=== PATIENT | female | born 1950 | race Caucasian/White ===

== ENCOUNTER 2019-10-23 05:39 | Inpatient (IN) | payer OTHER, MEDICAID ==
[~2019-10-23] VITALS: Ht 170.2 cm; Wt 83.5 kg
[2019-10-23 05:43] VITALS: BP 128/74
[2019-10-23] MEDS ORDERED: TRAMADOL 50 MG50 MG PO (05:48)
[2019-10-23] MEDS ORDERED: PROPRANOLOL 4040 M1 PO (05:48)
[2019-10-23] MEDS ORDERED: ZOFRAN4 MG PO (05:49)
[2019-10-23 06:09] LABS: ABSOLUTE LYMPHOCYTES 0.9 thou/uL (0.8-5.3); ABSOLUTE MONOCYTES 0.1 thou/uL (0.0-1.2); ABSOLUTE NEUTROPHILS 2.6 thou/uL (1.6-8.1); BASOPHILS 0.7 %; HEMATOCRIT 36.5 % (37.0-47.0); HEMOGLOBIN 12.1 gm/dL (12.0-15.0); LYMPHOCYTES 23.7 %; MCH 28.3 pg (26.0-34.0); MCHC 33.3 g/dL (28.0-37.0); MONOCYTES 2.8 %; MPV 10.1 fl. (7.2-11.1); NUCLEATED RBCS 0 /100WBC; PLATELET COUNT* 177 thou/uL (150-400); POLYS 71.8 %; WBC 3.6 thou/uL (4.0-11.0)
[2019-10-23 06:18] LABS: CALCIUM 8.5 mg/dL (8.5-10.1); CREATININE 0.8 mg/dL (0.6-1.3); POTASSIUM 3.5 mmol/L (3.5-5.1)
[2019-10-23 06:29] LABS: TOTAL BILIRUBIN 0.6 mg/dL (<0.1-1.0); TOTAL PROTEIN 6.5 g/dL (6.4-8.2)
[2019-10-23 06:30] LABS: INR 1.1; PROTIME 11.2 Seconds (9.20-11.50)
[2019-10-23 11:28] VITALS: BP 148/80
[2019-10-23] MEDS ORDERED: GABAPENTIN600 M1 PO (11:53)
[2019-10-23] MEDS ORDERED: NYSTATIN15 G3 TOP (11:54)
[2019-10-23 11:56] VITALS: BP 136/76
--- NOTE | 2019-10-23 17:43 | NUR ---
PT A&OX4 VSS. PT ADMITTED FROM ER WITH COMPRESSION FX R/T FALL AT HOME. PT HAS 2 IV, 20g TO RFA AND LAC. NORCO FOR PAIN MANAGEMENT. PT UP SBA TO BEDSIDE COMMODE. PT CONTINENT OF B/B. PT HX OF METASTATIC BREAST CANCER. PT CURRENTLY ON CHEMO. FAMILY IN ROOM ATY BEDSIDE. PT RESTS IN ROOM WITH CALL LIGHT IN REACH. WILL CONTINUE TO MONITOR.
[2019-10-24 08:45] VITALS: BP 116/68
[2019-10-24 09:26] LABS: ABSOLUTE LYMPHOCYTES 1.1 thou/uL (0.8-5.3); ABSOLUTE MONOCYTES 0.2 thou/uL (0.0-1.2); BASOPHILS 0.6 %; EOSINOPHILS 1.3 %; HEMATOCRIT 33.5 % (37.0-47.0); LYMPHOCYTES 32.9 %; MCHC 32.7 g/dL (28.0-37.0); MCV 85.6 fL (80.0-100.0); MONOCYTES 5.1 %; MPV 10.5 fl. (7.2-11.1); NUCLEATED RBCS 0 /100WBC; PLATELET COUNT* 159 thou/uL (150-400); POLYS 60.1 %; RBC 3.92 mil/uL (4.20-5.00); RDW-CV 18.2 % (10.5-14.5); WBC 3.4 thou/uL (4.0-11.0)
[2019-10-24 09:36] LABS: CALCIUM 8.3 mg/dL (8.5-10.1); CREATININE 0.7 mg/dL (0.6-1.3); POTASSIUM 3.7 mmol/L (3.5-5.1)
--- NOTE | 2019-10-24 17:16 | NUR ---
MRI ORDERED FOR THIS WEEKEND FOR POSSIBLE IR INTERVENTION ON SATURDAY. SPOKE WITH NURSING BLACKSMITH HAMMER OPERATOR WHO STATED DR KARIMI WOULD BE HERE SATURDAY AND WOULD NOT BE ABLE TO PERFORM ANY INTERVENTION AND DR GALARZA WAS NOT AVAILABLE UNTIL SATURDAY TO PERFORM ANY POTENTIAL INTERVENTION SO THE MRI WAS NOT EMERGENT FOR THE WEEKEND. DR MCQUEEN NOTIFIED.
--- NOTE | 2019-10-24 17:20 | NUR ---
PATIENT RESTING IN BED. PATIENT IS UP WITH STANDBY ASSIST. DAUGHTER AT BEDSIDE. PATIENT HAS HAD COMPLAINTS OF BACK PAIN 05/05, TREATED ADEQUATELY WITH HYDROCODONE AND FENTANYL FOR BREAKTHROUGH PAIN. PATIENT HAS GOOD APPETITE. PATIENT DENIES ANY NEEDS AT THIS TIME. CALL LIGHT WITHIN REACH.
[2019-10-25] VITALS: BP 108/49
[2019-10-25 03:58] LABS: ABSOLUTE LYMPHOCYTES 1.3 thou/uL (0.8-5.3); ABSOLUTE MONOCYTES 0.3 thou/uL (0.0-1.2); ABSOLUTE NEUTROPHILS 2.3 thou/uL (1.6-8.1); BASOPHILS 0.7 %; EOSINOPHILS 1.2 %; HEMATOCRIT 33.9 % (37.0-47.0); HEMOGLOBIN 11.1 gm/dL (12.0-15.0); LYMPHOCYTES 32.7 %; MCH 27.9 pg (26.0-34.0); MCHC 32.8 g/dL (28.0-37.0); MCV 85.3 fL (80.0-100.0); MONOCYTES 7.6 %; MPV 10.3 fl. (7.2-11.1); NUCLEATED RBCS 0 /100WBC; PLATELET COUNT* 169 thou/uL (150-400); POLYS 57.8 %; RBC 3.97 mil/uL (4.20-5.00)
[2019-10-25 04:15] LABS: ALBUMIN 2.6 g/dL (3.4-5.0); CALCIUM 8.4 mg/dL (8.5-10.1); CREATININE 0.9 mg/dL (0.6-1.3); POTASSIUM 3.7 mmol/L (3.5-5.1); TOTAL BILIRUBIN 0.2 mg/dL (<0.1-1.0); TOTAL PROTEIN 5.7 g/dL (6.4-8.2)
--- NOTE | 2019-10-25 05:18 | NUR ---
PATIENT AND DAUGHTER VOICED CONCERNS ABOUT DINNER NOT ARRIVING AFTER PLACING ORDER. GROCERY STOCK CLERK NOTIFIED AND HE SAID HE WOULD ATTEMPT TO REACH STAFF IN DIETARY BUT WAS UNSUCCESSFUL. TURKEY SANDWICHES/BOXED LUNCH AND DRINKS PROVIDED FOR PT AND DAUGHTER AND APOLOGIES MADE. PT HAD COMPLAINT NIGHT BEFORE ABOUT DEBIT CARD BEING GIVEN TO DIETARY STAFF TO PAY FOR DAUGHTER'S DINNER AND THE CARD WAS NEVER BROUGHT BACK. GROCERY STOCK CLERK NOTIFIED. PT SAID CARD WAS RETURNED FIRST THING IN THE AM. PT ALERT/ORIENTED X4 AND UP TO BSC OR BATHROOM WITH ASSIST OF DAUGHTER OR STAFF. PT REQUESTED PAIN MEDICATION AND RECEIVED HYDROCODONE 2 TABS AND SAID THIS WORKED BETTER FOR PAIN THAN THE FENTANYL. FREQUENTLY USED ITEMS AND CALL LIGHT WITHIN REACH. SIDERAILS UPX2. WILL CONTINUE TO MONITOR.
[2019-10-25 08:25] VITALS: BP 133/54
--- NOTE | 2019-10-25 17:10 | NUR ---
PATIENT RESTING IN BED. PATIEN TIS UP WITH STANDBY ASSIST. PATIENT HAS CONTINUED COMPAINTS OF BACK PAIN, TREATED PARTIALLY WITH MEDICATION. PATIENT HAS GOOD APPETITE. DAUGHTER AT BEDSIDE. PATIENT DENIES ANY NEEDS AT THIS TIME. CALL LIGHT WITHIN REACH.
[2019-10-25 23:52] VITALS: BP 150/64
--- NOTE | 2019-10-26 04:51 | NUR ---
PATIENT WITH SEVERE PAIN AND CRYING AT BEGINNING OF SHIFT. PT GIVEN FENTANYL X2 AND HYDROCODONE X2 DURING THIS SHIFT AND HAS BEEN ABLE TO SLEEP AT THIS TIME. PT UP WITH STANDBY TO BSC. DAUGHTER IS AT BEDSIDE. PT DENIES ANY NAUSEA AT THIS TIME. FREQUENTLY USED ITEMS AND CALL LIGHT WITHIN REACH. SIDERAILS UPX2. WILL CONTINUE TO MONITOR.
[2019-10-26 06:12] LABS: ABSOLUTE LYMPHOCYTES 1.3 thou/uL (0.8-5.3); ABSOLUTE MONOCYTES 0.3 thou/uL (0.0-1.2); ABSOLUTE NEUTROPHILS 1.9 thou/uL (1.6-8.1); BASOPHILS 0.5 %; EOSINOPHILS 1.3 %; HEMATOCRIT 37.5 % (37.0-47.0); HEMOGLOBIN 12.1 gm/dL (12.0-15.0); LYMPHOCYTES 37.9 %; MCH 27.8 pg (26.0-34.0); MCHC 32.2 g/dL (28.0-37.0); MCV 86.4 fL (80.0-100.0); MONOCYTES 7.2 %; MPV 9.9 fl. (7.2-11.1); NUCLEATED RBCS 0 /100WBC; PLATELET COUNT* 204 thou/uL (150-400); POLYS 53.1 %; RBC 4.34 mil/uL (4.20-5.00); RDW-CV 18.6 % (10.5-14.5); WBC 3.5 thou/uL (4.0-11.0)
[2019-10-26 06:27] LABS: CALCIUM 8.6 mg/dL (8.5-10.1); CREATININE 0.8 mg/dL (0.6-1.3); POTASSIUM 3.9 mmol/L (3.5-5.1)
[2019-10-26 07:40] VITALS: BP 144/65
[2019-10-26 16:00] VITALS: BP 102/47; BP 113/39
--- NOTE | 2019-10-26 16:30 | NUR ---
SW met with pt to complete initial assessment, introduce self, and SW role. Pt lives at home with dtr who is 16 yo. Pt has son in , a son in [place], and a son in [place]. Pt interested in Cares program, services, in home services at dc. SW to continue to follow to assist with safe dc planning.
--- NOTE | 2019-10-26 17:22 | NUR ---
PATIENT DOWN FOR MRI THIS AM OF THORACIC/LUMBAR SPINE, DR. MCQUEEN NOTIFIED OF CONFIRMED FRACTURE AND PATIENT TO HAVE OSTEOPLASTY TOMORROW. NPO AFTER MIDNIGHT. IV'S SL. PATIENT REQUESTING FENTANYL AND HYDROCODONE MULTIPLE TIMES THIS SHIFT FOR BACK PAIN. PATIENT UP TO BSC WITH ASSISTANCE. TOLERATING REG DIET.
[2019-10-26 20:30] VITALS: BP 104/50
[2019-10-27 05:42] LABS: ABSOLUTE EOSINOPHILS 0.1 thou/uL (0.0-0.7); ABSOLUTE MONOCYTES 0.3 thou/uL (0.0-1.2); ABSOLUTE NEUTROPHILS 1.5 thou/uL (1.6-8.1); BASOPHILS 0.5 %; EOSINOPHILS 2.3 %; HEMATOCRIT 36.4 % (37.0-47.0); HEMOGLOBIN 11.7 gm/dL (12.0-15.0); LYMPHOCYTES 35.7 %; MCH 27.9 pg (26.0-34.0); MCHC 32.1 g/dL (28.0-37.0); MCV 86.8 fL (80.0-100.0); MONOCYTES 9.8 %; MPV 9.8 fl. (7.2-11.1); NUCLEATED RBCS 0 /100WBC; PLATELET COUNT* 164 thou/uL (150-400); POLYS 51.7 %; RBC 4.19 mil/uL (4.20-5.00); RDW-CV 18.1 % (10.5-14.5); WBC 2.9 thou/uL (4.0-11.0)
[2019-10-27 06:02] LABS: CALCIUM 8.7 mg/dL (8.5-10.1); CREATININE 0.7 mg/dL (0.6-1.3)
--- NOTE | 2019-10-27 06:44 | NUR ---
PATIENT SLEPT MOST OF THE NIGHT. IV REMAIN SALINE LOCKED. PATIENT WAS GIVEN PAIN MEDICINE NEEDED. PATIENT HAS BEEN NPO SINCE MIDNIGHT FOR PROCEDURE TODAY. WILL CONTINUE TO MONITOR.
[2019-10-27 08:06] VITALS: BP 152/66
[2019-10-27 11:03] VITALS: BP 136/73
[2019-10-27 15:45] VITALS: BP 118/67
--- NOTE | 2019-10-27 17:06 | NUR ---
PATIENT WENT TO INTERVENTION RADIOLOGY THIS MORNING FOR KYPHOPLASTY AT L1 . RETURNED TO FLOOR AT 1045 WITH SMALL TEGADERM AND GAUZE DRESSING. PATIENT CONTINUES TO C/O PAIN AT AN 8-10 ALTHOUGH SHE IS FOUND SLEEPING SOUNDLY AFTER ASKING FOR MORE PAIN MEDS. HAS REC'D FENTANYL 25MCG IVP X2, AND HYDROCODONE 5/325 2 TABS PO X2 SINCE RETURNING TO UNIT. PT/OT ORDERED AND SPOKE WITH PATIENT AT GREAT LENGTH ABOUT GETTING UP AND MOVING AROUND TO INCREASE ACTIVITY DUE TO HER POSSIBLY GOING HOME TOMORROW, SHE REFUSED. DAUGHTER HAS REMAINED AT THE BEDSIDE THROUGHOUT THE DAY.
[2019-10-27 20:00] VITALS: BP 135/73
--- NOTE | 2019-10-28 05:11 | NUR ---
PT ALERT AND ORIENTED. VSS ON RA. MEDS GIVEN PER EMAR. PAIN GOT BOTH IV AN PO PAIN MEDS CONSISTENTLY THROUGH SHIFT. PAIN RATELY ALWAYS 10/10. PT SAYS PAIN MEDS HELP A LITTLE. PT SLEPT OFF AND ON THIS SHIFT. PT TO BSC. DTR AT BEDSIDE. CALL LIGHT WITHIN REACH. HOURLY ROUNDINGS MADE. WILL CONTINUE TO MONITOR.
[2019-10-28 07:28] VITALS: BP 131/65
[2019-10-28 16:00] VITALS: BP 148/65
--- NOTE | 2019-10-28 16:48 | NUR ---
Therapists with OT and PT department discussed with SW and with pt nurse that pt was not safe to dc home alone at this point and would recommend rehab prior to pt dc home. Pt nurse discussed with Dr Duffy who approved for inpt rehab consult. SW to continue to follow to assist with safe dc planning.
--- NOTE | 2019-10-28 17:42 | NUR ---
PATIENT HAD TO BE ENCOURAGED TO GET OUT OF BED AND SHOWER TODAY, ASSISTED BY STUDENT. PATIENT IV DC'D SITE WAS PINK. SPOKE WITH DR. MCQUEEN AND NOTIFIED THAT PT/OT FELT PATIENT UNSAFE TO RETURN TO HOME, REHAB CONS PLACED. IV FENTANYL DC'D PER DR. MCQUEEN'S ORDERS, FENTANYL PATCHED ORDERED AND PLACED TO LEFT SHOULDER. BED ALARM IN PLACE FOR PATIENT SAFETY. UP TO BATHROOM WITH SBA.
[2019-10-28 20:36] VITALS: BP 116/59
--- NOTE | 2019-10-29 05:21 | NUR ---
PT ALERT AND ORIENTED. VSS ON RA. MEDS GIVEN PER EMAR. PT REFUSED BP MED. PAIN MEDS GIVEN THROUGH SHIFT. PT SAYS PAINS SEEMS TO BE GETTING BETTER. PT UP TO BATHROOM STB. WALKER IN THE ROOM. FALL PRECAUTION IN PLACE. PT RE-EDUCATED ON FALLS. NYSTATIN TO RIGHT BREAST FOLDS. CALL LIGHT WITHIN REACH. HOURLY ROUNDINGS MADE. WILL CONTINUE TO MONITOR.
[2019-10-29 08:10] VITALS: BP 138/68
--- NOTE | 2019-10-29 13:08 | PATH ---
[address] [address] PATHOLOGY RPT PROCEDURE Name: GABRIEL STEELE Room: [facility] IN M.R.#: [id number] Admission: 10/23/19 Date of : 50 Discharge: Report #: [id number] Path Case #: [id number] [facility] Accession Number: [id number] . 01 Material submitted: . vertebral column - L1 VERTEBRAL BONE BIOPSY . 01 Clinical history: . None provided. . 02 Diagnosis: L1 bone biopsy fracture site: - Benign and viable cancellous bone including hematopoietic elements with evidence of fracture including stromal edema and granulation tissue. See comment. ([facility] 10/29/2019) [facility] 10/29/2019 0947 Local . 02 Comment: A properly controlled keratin Javier immunohistochemical stain, performed on A1, is negative. ([facility]BY:[facility] 10/29/2019) . . 02 Electronically signed: . James Rebolledo MD, Pathologist NPI- [id number] . 01 Gross description: . Received in formalin labeled "Gabriel Steele". The container is not labeled with the specimen site. Per the requisition, the specimen site is "L1 bone BX FX site". The specimen is a 2.0 x 2.0 x 0.2 cm aggregate of red-brown clotted blood material or soft tissue. A focal area of possible bone measuring 0.2 cm in greatest dimension is identified. The specimen is submitted entirely without decalcification in cassettes A1-A2. ([facility]; 10/27/2019) [facility] 10/27/2019 1931 Local . 02 Pathologist provided ICD-10: S32.019A . 02 CPT . 010314, E22875 Specimen Comment: A courtesy copy of this report has been sent to [phone] Specimen Comment: [id number] Specimen Comment: Report sent to / DR MCQUEEN Performed at: 01 [place] [address] PATHOLOGY RPT PROCEDURE Name: GABRIEL STEELE Room: [address] IN .#: [id number] Admission: 10/23/19 Date of : 50 Discharge: Report #: [id number] Path Case #: [id number] [address], [place], [place] [id number] MD Cisco Sanchez MD Phone: [phone] Performed at: [address] [facility] [address] [place] [id number] MD James Rebolledo MD Phone: [phone]
[2019-10-29 16:27] VITALS: BP 148/74
--- NOTE | 2019-10-29 17:39 | NUR ---
PATIENT RESTING IN BED. PATIENT IS UP WITH [facility] ASSIST. PATIENT HAS CONTINUED COMPLAINTS OF BACK PAIN, FENTANYL PATCH INCREASED AND HYDROCODONE AVAILABLE PRN. PATIENT HAS GOOD APPETITE. PATIENT DENIES ANY NEEDS AT THIS TIME. CALL LIGHT WITHIN REACH.
[2019-10-29 20:26] VITALS: BP 113/65
--- NOTE | 2019-10-30 05:14 | NUR ---
PATIENT SLEPT WELL DURING THIS SHIFT. PT UP TO BATHROOM WITH STANDBY ASSIST. PT REQUESTED PAIN MEDICATION APPROX Q4H FOR BACK PAIN. PT SAID TWO HYDROCODONE HELPS WITH PAIN. PT ALSO HAS A FENTANYL 75MCG PATCH. PT DENIES NAUSEA DURING THIS SHIFT. FREQUENTLY USED ITEMS AND CALL LIGHT WITHIN REACH. SIDERAILS UPX2 AND BED ALARM ON. WILL CONTINUE TO MONITOR.
[2019-10-30 07:10] VITALS: BP 121/74
--- NOTE | 2019-10-30 12:07 | NUR ---
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 Has breast cancer with METS. Wt: 184#. Eating regular diet well. H/o DM. Labs: albumin 2.6, prealbumin 13 - severely depleted. RD ordered Beneprotein BID for added protein intake. No other nutrition interventions needed at this time. Mild risk.
--- NOTE | 2019-10-30 14:58 | EKG ---
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: : 1950 Requested By: Chandni Gayle Order Number: [id number] MD: Elias Solorio Measurements Intervals [place] Rate: 102 P: 45 IN: 160 QRS: 63 QRSD: 96 T: 43 QT: 349 QTc: 455 Interpretive Statements Sinus tachycardia No previous ECG available for comparison Electronically Signed On 10-23-2019 9:44:18 CASH APPLICATIONS ANALYST by Elias Solorio [email or web address] <ELECTRONICALLY SIGNED> By: Elias Solorio MD, [facility] 10/23/19 0944 0544 Elias Solorio MD, [facility] /EPI
[2019-10-30 15:40] VITALS: BP 139/72
--- NOTE | 2019-10-30 17:18 | NUR ---
DC pending pt medical stability and dc placement inpt rehab or SNF or Home with dtr and HH and in home services. OT spoke with SW about in home/private duty and SW provided referral/resource list to provide to pt. [facility] application also ready to provide to [facility] at dc and HH can be arranged through [facility]. Pt nauseous today according to nursing but also making some improvements in mobility and ADLs according to therapy. SW/CM to continue to follow to assist with safe dc planning if placement needed, still pending acceptance and insurance auth.
[2019-10-30 21:40] VITALS: BP 131/65
--- NOTE | 2019-10-31 03:33 | NUR ---
PATIENT SAID SHE HAD A BETTER NIGHT THAN PRIOR NIGHTS AND SLEPT WELL. PT REQUESTED PAIN MEDICATION LESS FREQUENT. PT WOULD GET TWO HYDROCODONE FOR BACK PAIN. PT UP WITH STANDBY TO BATHROOM. PT HAS NO IV ACCESS. DENIES NAUSEA/VOMITING ON THIS SHIFT. DAUGHTER IS AT BEDSIDE. FREQUENTLY USED ITEMS AND CALL LIGHT WITHIN REACH. SIDERAILS UPX2 AND BED ALARM ON. WILL CONTINUE TO MONITOR.
[2019-10-31 08:08] VITALS: BP 136/69
[2019-10-31 16:31] VITALS: BP 147/71
[2019-10-31 20:00] VITALS: BP 134/59
--- NOTE | 2019-10-31 20:09 | NUR ---
PATIENT AWAKE IN BED. PATIENT AMBULATED WITH ASSISTANCE THROUGHOUT SHIFT TO BATHROOM. PATIENT DECLINED WALKER AND GAIT BELT THIS AFTERNOON. FALL PREVENTION RE-EDUCATION PROVIDED. FAMILY AT BEDSIDE.
--- NOTE | 2019-11-01 05:30 | NUR ---
PT SHOWING SIGNS OF CONFUSION AND INCREASED WEAKNESS, PT ASSISTED TO BSC PT VERY WEAK. BSC PLACED NEXT TO BED BED ALARM ON FOR SAFETY. PT C/O PAIN AND NAUSEA PO MEDICATION GIVEN PRESCRIBED. RESTED WELL THROUGHOUT HOURLY ROUNDS.
[2019-11-01 07:50] VITALS: BP 111/70
[2019-11-01 16:00] VITALS: BP 155/77
[2019-11-01 19:05] VITALS: BP 121/76
--- NOTE | 2019-11-01 19:46 | NUR ---
PATIENT AWAKE IN BED WITH DAUGHTER AT BEDSIDE. PATIENT EXPERIENCED INCREASED CONFUSION AND WEAKNESS REQUIRING ASSISTANCE X2, GAIT BELT, AND WALKER FROM COMMODE TO BED. ALL SAFETY MEASURES MAINTAINED. DR. COTTON NOTIFIED. NEW ORDERS RECEIVED AND VERIFIED WITH READ BACK. PATIENT DENIES FURTHER NEEDS AT THIS TIME.
[2019-11-01 20:00] VITALS: BP 120/61
[2019-11-01 20:12] LABS: ABSOLUTE LYMPHOCYTES 0.7 thou/uL (0.8-5.3); ABSOLUTE MONOCYTES 0.5 thou/uL (0.0-1.2); ABSOLUTE NEUTROPHILS 1.1 thou/uL (1.6-8.1); BASOPHILS 1.2 %; HEMATOCRIT 36.6 % (37.0-47.0); HEMOGLOBIN 11.8 gm/dL (12.0-15.0); LYMPHOCYTES 31.4 %; MCH 27.8 pg (26.0-34.0); MCHC 32.3 g/dL (28.0-37.0); MCV 86.1 fL (80.0-100.0); MONOCYTES 19.4 %; MPV 9.5 fl. (7.2-11.1); NUCLEATED RBCS 0 /100WBC; PLATELET COUNT* 200 thou/uL (150-400); RBC 4.26 mil/uL (4.20-5.00); RDW-CV 18.3 % (10.5-14.5); WBC 2.4 thou/uL (4.0-11.0)
[2019-11-01 20:16] LABS: BE 0.9 mmol/L (-2 to +3); PCO2 VENOUS 55.1 mmHg (41.0-51.0); PO2 VENOUS 63.5 mmHg (35.0-45.0)
[2019-11-01 20:24] LABS: CALCIUM 8.6 mg/dL (8.5-10.1); CREATININE 0.8 mg/dL (0.6-1.3); POTASSIUM 3.8 mmol/L (3.5-5.1)
[2019-11-01 20:28] LABS: ALBUMIN 2.7 g/dL (3.4-5.0); MAGNESIUM 1.2 mg/dL (1.8-2.4); TOTAL BILIRUBIN 0.3 mg/dL (<0.1-1.0); TOTAL PROTEIN 6.3 g/dL (6.4-8.2)
[2019-11-02] VITALS: BP 157/79
[2019-11-02 08:00] VITALS: BP 138/78
--- NOTE | 2019-11-02 15:24 | NUR ---
FAXED REFERRAL TO [facility]. NOTIFIED MICHELLE/DUNIA THAT PATIENT IS READY FOR DISCHARGE AND TO BEGIN INSURANCE AUTHORIZATION. WILL FOLLOW UP WITH CONFIRMATION THEY RECEIVED REFERRAL AND BED AVAILABILITY. [phone]; [phone]
[2019-11-02 16:00] VITALS: BP 136/64
[2019-11-02 20:00] VITALS: BP 126/65
--- NOTE | 2019-11-03 06:51 | NUR ---
ASSUMED CARES AT 1920. ALERT AND ORIENTED. PLEASANT. O2 1L NC. PAIN MEDS GIVEN FOR BACK PAIN. NEEDS MIN ASSIST UP TO BSC. SLEPT OFF AND ON.
[2019-11-03 07:54] VITALS: BP 132/60
--- NOTE | 2019-11-03 13:54 | NUR ---
SPOKE WITH MICHELLE/LYNETTE, THEY HAVE DECLINED PT D/T RECEIVING CHEMO. MET WITH PT TO DISCUSS. SHE HAD BEEN GETTING CHEMO IN [facility] BUT HAS AN APPT THURS WITH DR HENNESSY IN [place], 1ST VISIT, NO CHEMO SCHEDULED PER PT. DTR IN ROOM AND CONFIRMED. DISCUSSED OTHER SNF OPTIONS WITH PT, SHE IS OPEN TO EITHER [facility] OR [facility]. CALLED AND FAXED TO [facility]. DE/NABEEL STATED THEY DO NOT HAVE BEDS. AWAIT [facility] DECISION. ALSO DISCUSSED DIFFERENCE BETWEEN PALLATIVE CARE AND HOSPICE PER REQUEST. PT STATED SHE UNDERSTOOD. WILL CONSIDER
--- NOTE | 2019-11-03 15:51 | NUR ---
ASSUMED CARE OF PT AROUND 0730 THIS AM. REFER TO ASSESSMENT. PT GIVEN PRN HYDROCODONE FOR PAIN THIS SHIFT FOR PAIN MANAGEMENT. CASE MANAGEMENT ATTEMPTING TO FIND SNF PLACEMENT BUT D/T PT REMAINING ON CHEMOTHERAPY, NO PLACEMENT FOUND AT THIS TIME. PT GIVEN INFORMATION FOR PALLIATIVE CARE PER PHYSICIAN REQUEST. NO OTHER CONCERNS AT THIS TIME. CLWR. WCTM.
[2019-11-03 17:31] VITALS: BP 131/70
[2019-11-03 21:18] VITALS: BP 153/76
--- NOTE | 2019-11-04 04:49 | NUR ---
PATIENT ALERT/ORIENTED X3, FORGETFUL AND CONFUSED. PT IS TOO WEAK TO GET TO BSC AND ATTEMPTS TO USE BEDPAN. PT UNABLE TO USE BEDPAN AND IS INCONTINENT OF URINE. PT CHANGED FREQUENTLY. PT IS SALINE LOCKED IN LT FOREARM; PATENT. PT REQUESTED PAIN AND NAUSEA MEDICATION X1. FREQUENTLY USED ITEMS AND CALL LIGHT WITHIN REACH. SIDERAILS UPX3 AND BED ALARM ON. DAUGHTER IS AT BEDSIDE. WILL CONTINUE TO MONITOR.
[2019-11-04 05:29] LABS: HEMOGLOBIN 11.5 gm/dL (12.0-15.0); MCH 28.2 pg (26.0-34.0); MCHC 32.9 g/dL (28.0-37.0); MCV 85.7 fL (80.0-100.0); MPV 9.3 fl. (7.2-11.1); RBC 4.08 mil/uL (4.20-5.00); RDW-CV 18.9 % (10.5-14.5); WBC 3.7 thou/uL (4.0-11.0)
[2019-11-04 06:03] LABS: ALBUMIN 2.6 g/dL (3.4-5.0); CALCIUM 8.2 mg/dL (8.5-10.1); CREATININE 0.8 mg/dL (0.6-1.3); MAGNESIUM 1.4 mg/dL (1.8-2.4); PHOSPHORUS* 4.1 mg/dL (2.5-4.9)
[2019-11-04 07:55] VITALS: BP 156/66
--- NOTE | 2019-11-04 08:54 | NUR ---
CONFIRMED WITH AUSTYN/INTAKE AT [facility] THAT THEY HAVE ACCEPTED PATIENT AND HAVE INSURANCE AUTHORIZATION. NOTIFIED HVAC MECHANICAL ENGINEER. ARRANGEMENTS TO BE MADE, DCP TO FOLLOW. [phone]; [phone]
[2019-11-04 11:37] LABS: URINE BILIRUBIN NEGATIVE (Negative); URINE BLOOD TRACE (Negative); URINE CLARITY CLEAR; URINE COLOR YELLOW; URINE GLUCOSE-RANDOM NEGATIVE (Negative); URINE KETONES 2+ (Negative); URINE LEUKOCYTES-REFLEX 1+ (Negative); URINE NITRITE-REFLEX POSITIVE (Negative); URINE PROTEIN NEGATIVE (Negative); URINE UROBILINOGEN 0.2 E.U./dl (0.2-1.0)
[2019-11-04 12:37] LABS: BACTERIA-REFLEX >30 Many /HPF (None Seen); SQUAMOUS 0-3 Few /LPF (0-3); URINE WBC-REFLEX 6-15 Few /HPF (0-5)
[2019-11-04 12:38] LABS: CASTS None Seen /LPF (None Seen); CRYSTALS None Seen /LPF (None Seen); MUCUS None Seen strn/LPF (None Seen); URINE RBC 3-10 Few /HPF (0-2)
[2019-11-04 15:30] VITALS: BP 138/63
--- NOTE | 2019-11-04 17:15 | NUR ---
PATIENT RESTING IN BED. PATIENT HAS COMPLAINTS OF BACK PAIN, TREATED ADEQUATELY WITH MEDICATION. PATIENT IS ORIENTED BUT FORGETFUL AND DROWSY AT TIMES. PATIENT FOUND TO HAVE UTI AND ANTIBIOTICS STARTED ORDERED. PATIENT IS UP WITH ASSIST OF ONE TO BEDSIDE COMMODE. PATIENT SEEN BY OCCUPATIONAL AND PHYSICAL THERAPIES. PATIENT HAS FAIR APPETITE AND ENCOURAGED TO DRINK MORE. PATIENT DENIES ANY NEEDS AT THIS TIME. CALL LIGHT WITHIN REACH.
[2019-11-04 23:00] VITALS: BP 201/97
[2019-11-05 04:07] LABS: HEMOGLOBIN 11.6 gm/dL (12.0-15.0); MCH 27.7 pg (26.0-34.0); MCHC 32.2 g/dL (28.0-37.0); MCV 86.1 fL (80.0-100.0); MPV 9.2 fl. (7.2-11.1); RBC 4.18 mil/uL (4.20-5.00); RDW-CV 19.2 % (10.5-14.5); WBC 3.9 thou/uL (4.0-11.0)
--- NOTE | 2019-11-05 04:22 | NUR ---
PATIENT SLEPT WELL DURING THIS SHIFT. PT UP TO BSC AND WAS INCONTINENT OF URINE X1. BED CHANGE COMPLETED AND NEW GOWN PROVIDED. PT DID NOT REQUEST PAIN MEDICAITON DURING THIS SHIFT. PT IS ALERT/ORIENTED X4 BUT FORGETFUL AND IMPULSIVE. PT WITH SALINE LOCK IN LT FOREARM; PATENT. FREQUENTLY USED ITEMS AND CALL LIGHT WITHIN REACH. SIDERAILS UPX3 AND BED ALARM ON. DAUGHTER IS AT BEDSIDE. WILL CONTINUE TO MONITOR.
[2019-11-05 04:47] LABS: ALBUMIN 2.5 g/dL (3.4-5.0); CALCIUM 8.6 mg/dL (8.5-10.1); CREATININE 0.7 mg/dL (0.6-1.3); MAGNESIUM 1.5 mg/dL (1.8-2.4); PHOSPHORUS* 4.1 mg/dL (2.5-4.9); POTASSIUM 3.8 mmol/L (3.5-5.1)
[2019-11-05 07:35] VITALS: BP 152/84
[2019-11-05] MEDS ORDERED: CALCIUM + VITA1 EACH PO (10:17)
[2019-11-05] MEDS ORDERED: SENNA PLUS TAB1 EACH PO (10:17)
[2019-11-05] MEDS ORDERED: DURAGESIC1 EAC5 TRANSDERM (10:17)
[2019-11-05] MEDS ORDERED: CEFUROXIME250 MG PO (10:17)
[2019-11-05] MEDS ORDERED: NEXIUM40 MG PO (10:17)
[2019-11-05] MEDS ORDERED: HYDROCODON-ACE1 EAC7 PO (10:17)
[2019-11-05] MEDS ORDERED: KEPPRA XR500 MG PO (10:24)
[2019-11-05] MEDS ORDERED: DEXAMETHASONE 44 M1 PO (10:24)
--- NOTE | 2019-11-05 10:52 | NUR ---
FAXED DISCHARGE ORDERS AND SUMMARY WITH UPDATED ASSESSMENTS FROM 11/03/19 TO [facility] [place]. WILL CONFIRM WITH AUSTYN/INTAKE THAT SHE RECEIVED AND MAKE TRANSPORTATION ARRANGEMENTS FOR THIS AFTERNOON. PACHECO/RN ON NURSING UNIT STATED PATIENT CAN TRAVEL BY WHEELCHAIR VAN. DCP TO FOLLOW. [facility] [place] [phone]; [phone]
[2019-11-05 15:43] VITALS: BP 122/55
--- NOTE | 2019-11-05 16:37 | NUR ---
CONFIRMED WITH AUSTYN/INTAKE AT [facility] THAT THEY HAVE INSURANCE AUTHORIZATION AND A BED AVAILABLE FOR PATIENT TOMORROW, 11/06/19. DISCUSSED WITH PATIENT AND DIPAK (DAUGHTER) THAT SHE WILL BE DISCHARGED TO THE [facility] TOMORROW. SHE WAS PLEASANT AND LOOKING FORWARD TO GOING TO [facility] FOR REHAB WITH THE GOAL OF RETURNING HOME. [facility] [phone]
--- NOTE | 2019-11-05 17:36 | NUR ---
PATIENT RESTING IN BED. PATIENT IS UP WITH MODERATE ASSIST WITH TRANSFERS. PATIENT MORE ALERT THIS EVENING. PATIENT HAS COMPLAINTS OF BACK PAIN, TREATED ADEQUATELY WITH MEDICATION. PATIENT HAS FAIR APPETITE, ENCOURAGED TO EAT AND DRINK MORE. PATIENT DENIES ANY NEEDS AT THIS TIME. CALL LIGHT WITHIN REACH.
[2019-11-05 19:50] VITALS: BP 166/87
--- NOTE | 2019-11-06 05:14 | NUR ---
PT AWAKE MUCH OF THE NIGHT. SETTING OFF BED ALARM SITTING UP TO SIDE OF BED WANTING TO GET UP FREQUENTLY TO BSC TO VOID. PT CONFUSED AT TIMES, THINKING SHE NEED TO "PUT IN SOME NUMBERS" OR "GET READY TO GO TO THAT PLACE". DTR SLEEPING AT BEDSIDE. LFA SL. HYDROCODONE GIVEN ONCE FOR CO GENERAL PAIN WITH FAIR RELIEF. PT EASILY REDIRECTABLE WHEN CONFUSED AND APOLOGETIC. ANTICIPATING DISCHARGE TO [facility] TODAY. PT WEAK WITH TRANSFER AND NEEDS DIRECTION ON WHICH WAY TO TURN, TO MOVE FEET AND STAND UP STRAIGHT ETC. BED ALARM ON FOR SAFETY, CALL LITE IN EASY REACH.
[2019-11-06 07:30] VITALS: BP 175/90
[2019-11-06 10:27] VITALS: BP 166/87
--- NOTE | 2019-11-06 11:31 | NUR ---
CONFIRMED WITH AUSTYN/INTAKE AT [facility] THAT SHE HAS A BED AVAILABLE AND HAS MADE TRANSPORTATION ARRANGEMENTS FOR 13:00 TODAY, 11/06/19. NOTIFIED NURSING UNIT AND WINDMILL TECHNICIAN. WILL TALK TO PATIENT AND CONTACT DAUGHTER. [facility] [phone]; [phone]
--- NOTE | 2019-11-06 11:32 | NUR ---
REMAINS A&O WITH EPISODES OF CONFUSION. RESPIRATIONS EVEN AND UNLABORED ON ROOM AIR. DENIES PAIN. UP WITH ASSISTANCE. VSS. DISCHARGE PLANNING. NSG WILL CONTINUE TO ASSESS.
--- NOTE | 2019-11-06 13:00 | NUR ---
TALKED TO PATIENT AND DIPAK AGUDELO (DAUGHTER) [phone] ABOUT TRANSPORTATION ARRANGEMENTS TO [facility] AT 13:00 TODAY. WE TALKED ABOUT THE [facility] ALLOWING VISITORS OF THIS TIME.
--- NOTE | 2019-11-06 15:19 | NUR ---
1335 REPORT GIVEN TO STAFF AT THE [facility]. FACILITY TRANSPORT IN ROUTE.
--- NOTE | 2019-11-06 15:21 | NUR ---
1330 DISCHARGED TO THE [facility] VIA FACILITY TRANSPORT WITH INSTRUCTIONS. REMAINS STABLE. VSS. NO S/SX OF ACUTE DISTRESS.
== END 2019-11-06 13:20 | DRG 477 ==
LOC: M.ERS 05:39 → M.3W 09:30 → M.TBA-ER 09:30 → M.3W 11:58
PROVIDERS: Emergency Medicine; Family Medicine; Internal Medicine; ADMIT Internal Medicine
PROC: 0Q903ZX Drainage of Lumbar Vertebra, Percutaneous Approach, Diagnostic (ICD-10-PCS; principal; 2019-10-27)
PROC: 0QU03JZ Supplement Lumbar Vertebra with Synthetic Substitute, Percutaneous Approach (ICD-10-PCS; principal; 2019-10-27)
PROC: 0QS03ZZ Reposition Lumbar Vertebra, Percutaneous Approach (ICD-10-PCS; principal; 2019-10-27)
DX: S32.019A Unspecified fracture of first lumbar vertebra, initial encounter for closed fracture (principal); E43 Unspecified severe protein-calorie malnutrition; G92 Toxic encephalopathy; C78.7 Secondary malignant neoplasm of liver and intrahepatic bile duct; C79.31 Secondary malignant neoplasm of brain; C78.01 Secondary malignant neoplasm of right lung; N39.0 Urinary tract infection, site not specified; C50.919 Malignant neoplasm of unspecified site of unspecified female breast; E11.9 Type 2 diabetes mellitus without complications; W19.XXXA Unspecified fall, initial encounter; D64.81 Anemia due to antineoplastic chemotherapy; T45.1X5A Adverse effect of antineoplastic and immunosuppressive drugs, initial encounter; D70.1 Agranulocytosis secondary to cancer chemotherapy; E83.42 Hypomagnesemia; M81.0 Age-related osteoporosis without current pathological fracture; Z68.28 Body mass index [BMI] 28.0-28.9, adult; Z92.21 Personal history of antineoplastic chemotherapy; Z88.5 Allergy status to narcotic agent; Z88.0 Allergy status to penicillin; Z88.8 Allergy status to other drugs, medicaments and biological substances; Z79.899 Other long term (current) drug therapy; Z85.841 Personal history of malignant neoplasm of brain; Z87.891 Personal history of nicotine dependence; Y93.89 Activity, other specified; Y92.89 Other specified places as the place of occurrence of the external cause; Y99.8 Other external cause status

== ENCOUNTER → 2019-12-01 | Outpatient (CLI) | payer OTHER, MEDICAID ==
[~2019-12-01] VITALS: Ht 172.7 cm; Wt 79.5 kg
[~2019-12-01] MED LIST: CALCIUM + VITA1 EACH PO; CEFUROXIME250 MG PO; DEXAMETHASONE 44 M1 PO; DURAGESIC1 EAC5 TRANSDERM; GABAPENTIN600 M1 PO; HYDROCODON-ACE1 EAC7 PO; KEPPRA XR500 MG PO; NEXIUM40 MG PO; NYSTATIN15 G3 TOP; PROPRANOLOL 4040 M1 PO; SENNA PLUS TAB1 EACH PO; TRAMADOL 50 MG50 MG PO; ZOFRAN4 MG PO
[2019-12-01 08:39] VITALS: BP 139/76; BP 141/80
[2019-12-01 09:08] LABS: HEMATOCRIT 39.7 % (37.0-47.0); HEMOGLOBIN 13.2 gm/dL (12.0-15.0); MCH 28.1 pg (26.0-34.0); MCHC 33.3 g/dL (28.0-37.0); MCV 84.4 fL (80.0-100.0); RBC 4.7 mil/uL (4.20-5.00); RDW-CV 18.2 % (10.5-14.5); WBC 6.4 thou/uL (4.0-11.0)
[2019-12-01 09:25] LABS: CALCIUM 8.9 mg/dL (8.5-10.1); CREATININE 0.8 mg/dL (0.6-1.3); POTASSIUM 3.2 mmol/L (3.5-5.1)
[2019-12-01 09:28] LABS: APTT 27.4 Seconds (25.0-31.3); INR 1.2
[2019-12-01 11:30] VITALS: BP 132/76
[2019-12-01 11:45] VITALS: BP 125/75
[2019-12-01 12:00] VITALS: BP 125/75
== END | disposition home or self-care (01) ==
LOC: M.RAD 11-26 10:00 → M.INT 11-26 11:30 → M.RAD 11-30 10:00
PROVIDERS: Radiology Diagnostic Radiology
DX: Z45.2 Encounter for adjustment and management of vascular access device (principal); C50.912 Malignant neoplasm of unspecified site of left female breast; M85.852 Other specified disorders of bone density and structure, left thigh; M85.851 Other specified disorders of bone density and structure, right thigh; I10 Essential (primary) hypertension; E11.9 Type 2 diabetes mellitus without complications; Z87.891 Personal history of nicotine dependence; Z79.899 Other long term (current) drug therapy; Z98.890 Other specified postprocedural states; Z79.4 Long term (current) use of insulin; Z88.0 Allergy status to penicillin; Z88.8 Allergy status to other drugs, medicaments and biological substances

== ENCOUNTER 2019-12-20 10:03 | Inpatient (IN) | payer OTHER, MEDICAID ==
[~2019-12-20] VITALS: Ht 172.7 cm; Wt 73.9 kg
[2019-12-20 10:05] VITALS: BP 112/66
[2019-12-20 11:18] LABS: URINE BILIRUBIN NEGATIVE (Negative); URINE BLOOD TRACE (Negative); URINE CLARITY SL CLOUDY; URINE COLOR YELLOW; URINE GLUCOSE-RANDOM NEGATIVE (Negative); URINE PROTEIN NEGATIVE (Negative); URINE SPECIFIC GRAVITY 1.025 (1.005-1.030)
[2019-12-20 11:21] LABS: ACETEST (KETONE CONFIRMATORY) Large (Negative); URINE KETONES 3+ (Negative); URINE LEUKOCYTES-REFLEX 2+ (Negative); URINE NITRITE-REFLEX POSITIVE (Negative)
[2019-12-20 11:23] LABS: BACTERIA-REFLEX >30 Many /HPF (None Seen); CASTS None Seen /LPF (None Seen); SQUAMOUS 0-3 Few /LPF (0-3); URINE RBC 0-2 Rare /HPF (0-2); URINE WBC-REFLEX 0-5 Rare /HPF (0-5)
[2019-12-20 11:24] LABS: CRYSTALS None Seen /LPF (None Seen)
[2019-12-20 11:29] LABS: HEMATOCRIT 40.5 % (37.0-47.0); HEMOGLOBIN 13.4 gm/dL (12.0-15.0); MCH 28.2 pg (26.0-34.0); MCHC 33.1 g/dL (28.0-37.0); MCV 84.9 fL (80.0-100.0); MPV 9.4 fl. (7.2-11.1); NUCLEATED RBCS 0 /100WBC; RBC 4.76 mil/uL (4.20-5.00); RDW-CV 17.5 % (10.5-14.5); WBC 8.5 thou/uL (4.0-11.0)
[2019-12-20 11:32] LABS: INR 1.1; PROTIME 11.4 Seconds (9.20-11.50)
[2019-12-20 11:33] LABS: CALCIUM 7.1 mg/dL (8.5-10.1); CREATININE 0.7 mg/dL (0.6-1.3); POTASSIUM 3.6 mmol/L (3.5-5.1)
[2019-12-20 11:38] LABS: ALBUMIN 2.4 g/dL (3.4-5.0); TOTAL BILIRUBIN 0.7 mg/dL (<0.1-1.0); TOTAL PROTEIN 6.2 g/dL (6.4-8.2)
[2019-12-20 12:14] LABS: ABSOLUTE EOSINOPHILS 0.1 thou/uL (0.0-0.7); ABSOLUTE LYMPHOCYTES 1.6 thou/uL (0.8-5.3); ABSOLUTE MONOCYTES 0.5 thou/uL (0.0-1.2); ABSOLUTE NEUTROPHILS 6.3 thou/uL (1.6-8.1); PLATELET COUNT* 199 thou/uL (150-400); PLATELET ESTIMATE ADEQUATE
[2019-12-20 12:30] VITALS: BP 116/64
[2019-12-20 13:05] VITALS: BP 150/81
--- NOTE | 2019-12-20 13:34 | NUR ---
RECEIEVIED REPORT FROM MELISSA HAIRSTON IN ER OF EXPECTED ADMISSION AT 1220- PT ARRIVED TO ROOM 214 VIA CART AT 1237, ASSIST X3 VIA SLIDE TO BED- PT A&O X4- CONT VS INCONT OF B/B- BED REST IN PLACE WITH Q 2 HOUR TURNS- LCTA, RESP EVEN AND UN-LABORED- VS- 98.3 18 150/81 114 98% ON RA- ABD SOFT/ROUND/NON-TENDER, BS X4 QUADS- PT REPORTS LAST BM 12/19/19- IV NOTED TO LEFT FA INTACT, IVF ABT INFUSSING PRESCIBED AT THIS TIME- FENT PATCH NOTED TO LEFT UPPER BACK SHOULDER ON ADMISSION, PT UNABLE TO RECALL LAST TIME IT WAS CHANGED; BUT DOSE STATE IT HAS BEEN LONGER THAN 3 DAYS- OLD PATCH REMOVED WITH NEW PLACED TO RUE PRESCIBED- YEAT/RASH NOTED TO BRENDON BREAST, AREA CLAEANED WITH WARM H2O AND SOAP AND PATTED DRY; PIC OBTAINED AND PLACED ON CHART FOR VIEWING- NYSTATIN POWDER ORDERED PER PHYSICIAN- BLANCHABLE REDNESS NOTED BUTTOCK, PRESSURE AREA NOTED TO RIGHT UPPER BUTTOCKS; PICTURES OBTAINED AND PLACED ON CHART FOR VIEWING-RIGHT CHEST PORT NOTED R/T CURRENT CHEMO WEEKLY, BUT NOT ACCESSED- PT REPORTS PAIN/DISCOMFORT TO RIGHT ANKLE, X-RAY NEGATIVE FOR ACUTE FX- ANKLE NOTED TO BE ROTATED INWARDS WITH SLIGHT SWELLING AND BRUISING- AIR CAST AT BED SIDE FOR AMBULATION- LUNCH GIVEN AT TIME OF ADMISSION, FAIR PO INTAKE NOTED- CALL LIGHT AND PERSONAL BELONGINGS WITH IN REACH- HOURLY ROUNDS IN PLACE R/T SAFETY/NEEDS- ALL NEEDS MET AT THIS TIME-WCTM
[2019-12-20 20:00] VITALS: BP 137/62
[2019-12-21] VITALS: BP 102/51
[2019-12-21 04:44] LABS: HEMATOCRIT 37.9 % (37.0-47.0); HEMOGLOBIN 12.5 gm/dL (12.0-15.0); MCH 28.1 pg (26.0-34.0); MCV 85.1 fL (80.0-100.0); MPV 9.3 fl. (7.2-11.1); RBC 4.45 mil/uL (4.20-5.00); RDW-CV 17.5 % (10.5-14.5); WBC 4.8 thou/uL (4.0-11.0)
[2019-12-21 05:16] LABS: CALCIUM 6.9 mg/dL (8.5-10.1); CREATININE 0.7 mg/dL (0.6-1.3); POTASSIUM 3.3 mmol/L (3.5-5.1)
[2019-12-21 05:20] LABS: ALBUMIN 2.2 g/dL (3.4-5.0); MAGNESIUM 1.1 mg/dL (1.8-2.4); TOTAL BILIRUBIN 0.6 mg/dL (<0.1-1.0); TOTAL PROTEIN 5.9 g/dL (6.4-8.2)
--- NOTE | 2019-12-21 05:21 | NUR ---
ASSUMED CARE OF PT AFTER REPORT AT 1930. PT A&OX4. VSS. PHYSICAL ASSESSMENT COMPLETED AND CHARTED. PT ON RA. PT ON MEDSURG STATUS. PT COMPLAINED OF RIGHT ANKLE PAIN-MED GIVEN PER OCT. FALL PRECAUTIONS IN PLACE. CALL LIGHT WITHIN REACH.
[2019-12-21 08:30] VITALS: BP 100/48
--- NOTE | 2019-12-21 13:51 | NUR ---
CM attempted to reach Pt in her room, no answer. CM attempted to contact Pt's son, Galindo, phone just kept ringing. CM attempted to reach Pt's 16 y/o dtr and her phone was disconnected, Pt's cell phone is also disconnected. CM to continue to try and reach Pt in room. Per PT, they are concerned about Pt returning home. CM to continue to try and reach Pt in room.
--- NOTE | 2019-12-21 14:57 | EKG ---
[place] [address] ELECTROCARDIOGRAM REPORT Name: GABRIEL SANCHEZ Room: [address] ADM IN .R.#: [id number] Admission: 12/20/19 Attend Phys: Beena López, Discharge: Date of : 50 Date of Service: 12/20/19 1151 Report #: [id number] THIS REPORT FOR: //name// [facility] ED Test Date: 2019-12-20 Test Time: 11:51:09 Pat Name: GABRIEL SANCHEZ Department: Room: [facility] Gender: F Transitional Care Liaison: : 1950 Requested By: Todd Fenton Order Number: [id number] MD: Dalton Marshall Measurements Intervals [place] Rate: 103 P: -6 WA: 118 QRS: 61 QRSD: 83 T: -60 QT: 359 QTc: 470 Interpretive Statements Sinus tachycardia Borderline repolarization abnormality; consider inferolateral ischemia Compared to ECG 10/23/2019 05:44:[address] segment depression is noted Electronically Signed On 12-21-2019 14:55:50 CDT by Dalton Marshall [email or web address] <ELECTRONICALLY SIGNED> By: Dalton Marshall MD, FAC 12/21/19 1455 1151 1151 Dalton Marshall MD, FAC /EPI
[2019-12-21 16:16] VITALS: BP 108/58
--- NOTE | 2019-12-21 16:50 | NUR ---
PATIENT ALERT AND ORIENTED X 4. FORGETFUL AT TIMES. VITAL SIGNS STABLE ON ROOM AIR. UP WITH MAX ASSIST TO THE BEDSIDE COMODE. IV PATENT AND SALINE LOCKED. DENIES NAUSEA AT THIS TIME. PAIN BEING MANAGED WITH PO MEDICATION AND LIDOCAINE PATCH. ANTIBIOTICS GIVEN PER OCT. FALL PRECAUTIONS IN PLACE AND BED ALARM ON. HOURLY ROUNDS MAINTAINED THROUGHOUT THE SHIFT. CALL LIGHT WITHIN REACH. NURSING WILL CONTINUE TO MONITOR.
[2019-12-21 20:00] VITALS: BP 127/56
[2019-12-21 23:51] VITALS: BP 100/44
[2019-12-22 04:29] LABS: HEMATOCRIT 33.6 % (37.0-47.0); HEMOGLOBIN 11.2 gm/dL (12.0-15.0); MCH 28.2 pg (26.0-34.0); MCHC 33.4 g/dL (28.0-37.0); MCV 84.6 fL (80.0-100.0); MPV 10.1 fl. (7.2-11.1); RBC 3.97 mil/uL (4.20-5.00); RDW-CV 17.6 % (10.5-14.5); WBC 2.5 thou/uL (4.0-11.0)
--- NOTE | 2019-12-22 04:37 | NUR ---
ASSUMED CARE OF PT AFTER REPORT AT 1930. PT A&OX4. FORGETFUL. VSS. PHYSICAL ASSESSMENT COMPLETED AND CHARTED. PT ON RA. PT ON MEDSURG STATUS. PT TURNED TO SIDES. PT COMPLAINED OF RIGHT ANKLE PAIN-MED GIVEN PER OCT. PT ABLE TO SLEEP WELL ON BED. FALL PRECAUTION IN PLACE. CALL LIGHT WITHIN REACH.
[2019-12-22 04:42] LABS: CALCIUM 6.8 mg/dL (8.5-10.1); CREATININE 0.7 mg/dL (0.6-1.3); MAGNESIUM 1.2 mg/dL (1.8-2.4); POTASSIUM 3.4 mmol/L (3.5-5.1)
[2019-12-22 08:39] VITALS: BP 97/55
--- NOTE | 2019-12-22 12:17 | NUR ---
Pt is A&O. Resides at home with her 16 year old dtr. CM attempted to reach dtr, both dtr's phone and Pt's cell phone are disconnected. Per Pt, they changed their phone numbers and Pt does not remember what her dtr's cell phone number is. Pt uses walker for mobility. Pt dc to [facility] in October. Per , Pt will need SNF again, Pt in agreement but states that she does not want to return to [facility]. CM to fax referrals to [facility] and [facility]. Per , Pt will be ready to dc in 1-2 days, once urine cultures have returned.
--- NOTE | 2019-12-22 14:00 | NUR ---
REPORT CALLED TO DAVID ON [facility]. PT TRANSFERRED TO ROOM 118.
[2019-12-22 16:00] VITALS: BP 104/54
--- NOTE | 2019-12-22 18:57 | NUR ---
RECEIVED REPORT FROM MELISSA RODRIGUES AND PATIENT TO FLOOR AT 1407. PATIENT A&OX4, SOME FORGETFULNESS. PATIENT INCONTINENT OF B/B. PATIENT HAS REDNESS UNDER BREASTS. ADDED INTERDRY AND CALLED PHARMACY FOR NYSTATIN POWDER. PATIENT HAS 22G IV L WRIST. PATENT, BUT BRUISING AT SITE. CALL LIGHT IN REACH. BED IN LOWEST LOCKED POSITION.
[2019-12-22 20:44] VITALS: BP 100/39
[2019-12-23 04:28] VITALS: BP 112/48
--- NOTE | 2019-12-23 05:19 | NUR ---
PATIENT IS MAX ASSIST. FORGETFUL AND ORIENTED X3. BLOOD PRESSURE WAS SOFT DURING NIGHT HELD BP MEDS. PUREWICK USED, YELLOW URINE GOOD OUTPUT. BED CHANGE, HOURLY ROUNDS MADE. NYSTATIN APPLIED UNDER BREASTS, Q2 TURNS AND HYDRATION ENCOURAGED. WILL CONTINUE TO MONITOR.
[2019-12-23 07:35] VITALS: BP 136/59
--- NOTE | 2019-12-23 15:02 | NUR ---
MARCE spoke with pt, Dr López, pt nurse and Elizabeth at [facility]. Pt accepted to SNF and will be ready to dc there tomorrow 12/23. SW to continue to follow to finalize safe dc plan/snf placement. [facility] ph [phone]
--- NOTE | 2019-12-23 18:06 | NUR ---
PATIENT RESTING IN BED. PATIENT HAS COMPLAINTS OF PAIN TO RIGHT SIDE, TREATED ADEQUATELY WITH MEDICATION. PATIENT WORKED WITH THERAPY TODAY. PATIENT HAS GOOD APPETITE. PATIENT IS INCONTINENT OF BOWEL AND BLADDER. PATIENT DENIES ANY NEEDS AT THIS TIME. CALL LIGHT WITHIN REACH.
[2019-12-23 20:00] VITALS: BP 145/55
--- NOTE | 2019-12-24 05:05 | NUR ---
PT A&O, FORGETFUL/CONFUSED AT TIMES. VSS ON RA. MEDS GIVEN ORDERED. PAIN MANAGED WITH NORCO. PUREWICK APPLIED FOR INCONTINENCE. PT SLEEPING/RESTING THROUGH THE NIGHT. HOURLY ROUNDINGS COMPLETED. WILL CONTINUE TO MONITOR.
[2019-12-24 08:00] VITALS: BP 138/65
[2019-12-24] MEDS ORDERED: LIDOPATCH1 EACH TOP (09:33)
[2019-12-24] MEDS ORDERED: HYDROCODON-ACE1 EAC7 PO (09:33)
[2019-12-24] MEDS ORDERED: NYAMYC15 GM TOP (09:33)
[2019-12-24] MEDS ORDERED: CIPRO500 MG PO (09:33)
[2019-12-24 09:37] VITALS: BP 138/65
--- NOTE | 2019-12-24 11:54 | NUR ---
MARCE received call from Elizabeth with [facility] who provided final acceptance of pt to SNF and arranged transport for between 11:30 and 12. MARCE faxed dc summary to admissions SNF. SW called pt room and pt did not answer; pt nurse informed pt and tried to call pt dtr but was unable to reach pt dtr; pt to inform pt dtr. Chart was copied for continuation of care.
--- NOTE | 2019-12-24 12:30 | NUR ---
PATIENT INCONTINENT OF URINE THIS SHIFT. TURNED Q2. WOUND PHOTO TAKEN OF SACRUM AND MEPILEX REPLACED. NYSTATIN AND INTERDRY UNDER BREASTS. IV DC'D. PATIENT DISCHARGED TO [facility]. REPORT CALLED TO [facility]. CAM BOOT IN PLACE TO RIGHT LEG. HYDROCODONE GIVEN X 2 THIS SHIFT FOR RIGHT ANKLE/LEG PAIN. PATIENT TAKEN OUT VIA WHEELCHAIR WITH ALL BELONGINGS. SEVERAL ATTEMPTS MADE TO CALL PATIENTS DAUGHTER YOANNA BUT NO ANSWER FOR THIS NURSE OR CM. PATIENT STATED SHE DID CALL HER DAUGHTER TO TELL HER SHE WAS DISCHARGING BUT PATIENT STATED SHE COULDNT REMEMBER WHERE SHE WAS GOING.
--- NOTE | 2019-12-24 15:52 | NUR ---
PT DC'ED PRIOR TO P.T. TREATEMENT THIS DATE. KESHIA MCKEE, MPT
== END 2019-12-24 12:37 | DRG 690 ==
LOC: M.ERS 10:03 → M.ORTHSURG 12:05 → M.TBA-ER 12:05 → M.2W 12:05 → M.ORTHSURG 12-22 14:01
PROVIDERS: Family Medicine; ADMIT Internal Medicine
PROC: 2W3QX1Z Immobilization of Right Lower Leg using Splint (ICD-10-PCS; principal; 2019-12-20)
DX: N39.0 Urinary tract infection, site not specified (principal); E44.1 Mild protein-calorie malnutrition; D61.818 Other pancytopenia; F11.20 Opioid dependence, uncomplicated; S93.401A Sprain of unspecified ligament of right ankle, initial encounter; G89.29 Other chronic pain; E11.9 Type 2 diabetes mellitus without complications; I10 Essential (primary) hypertension; Z85.3 Personal history of malignant neoplasm of breast; Z88.6 Allergy status to analgesic agent; Z88.0 Allergy status to penicillin; Z88.8 Allergy status to other drugs, medicaments and biological substances; Z87.891 Personal history of nicotine dependence; Z79.899 Other long term (current) drug therapy; Z68.24 Body mass index [BMI] 24.0-24.9, adult; W18.39XA Other fall on same level, initial encounter; Y93.89 Activity, other specified; Y92.098 Other place in other non-institutional residence as the place of occurrence of the external cause; Y99.8 Other external cause status

== ENCOUNTER 2020-02-12 06:32 | Inpatient (IN) | payer OTHER, MEDICAID ==
[~2020-02-12] VITALS: Ht 172.7 cm; Wt 82.6 kg
[~2020-02-12 06:32] MED LIST changes: +CIPRO500 MG PO; +LIDOPATCH1 EACH TOP; +NYAMYC15 GM TOP
[2020-02-12 06:38] VITALS: BP 108/72
[2020-02-12 07:03] LABS: ABSOLUTE LYMPHOCYTES 0.7 thou/uL (0.8-5.3); ABSOLUTE MONOCYTES 0.3 thou/uL (0.0-1.2); ABSOLUTE NEUTROPHILS 2.3 thou/uL (1.6-8.1); BASOPHILS 0.9 %; EOSINOPHILS 0.4 %; HEMATOCRIT 37.5 % (37.0-47.0); LYMPHOCYTES 19.8 %; MCH 27.5 pg (26.0-34.0); MCV 85.8 fL (80.0-100.0); MPV 9.1 fl. (7.2-11.1); NUCLEATED RBCS 0 /100WBC; PLATELET COUNT* 281 thou/uL (150-400); POLYS 69.9 %; RBC 4.37 mil/uL (4.20-5.00); RDW-CV 16.5 % (10.5-14.5); WBC 3.3 thou/uL (4.0-11.0)
[2020-02-12 07:15] LABS: CREATININE 0.8 mg/dL (0.6-1.3); POTASSIUM 3.3 mmol/L (3.5-5.1)
[2020-02-12 07:19] LABS: ALBUMIN 2.9 g/dL (3.4-5.0); MAGNESIUM 1.2 mg/dL (1.8-2.4); TOTAL BILIRUBIN 0.5 mg/dL (<0.1-1.0); TOTAL PROTEIN 6.7 g/dL (6.4-8.2)
--- NOTE | 2020-02-12 07:51 | NUR ---
CT COMPLEATED PT RERURNED TO ED
[2020-02-12 11:35] VITALS: BP 127/91
[2020-02-12 12:10] VITALS: BP 129/70
--- NOTE | 2020-02-12 13:40 | EKG ---
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: [place] : 1950 Requested By: Patricia Dsouza Order Number: [id number] MD: Elias Solorio Measurements Intervals Tabiona Rate: 128 P: 67 HI: 133 QRS: 67 QRSD: 99 T: -58 QT: 315 QTc: 460 Interpretive Statements Sinus tachycardia Borderline T abnormalities, inferior leads Compared to ECG 12/20/2019 11:51:09 rate has increased Electronically Signed On 02-12-2020 13:39:56 CDT by Elias Solorio [email or web address] <ELECTRONICALLY SIGNED> By: Elias Solorio MD, LOCATED WITHIN [facility] 02/12/20 1339 0639 0639 Elias Solorio MD, LOCATED [facility] /EPI
[2020-02-12 16:00] VITALS: BP 120/61
[2020-02-12 16:41] LABS: CALCIUM 6.8 mg/dL (8.5-10.1); CREATININE 0.7 mg/dL (0.6-1.3); MAGNESIUM 1.1 mg/dL (1.8-2.4)
[2020-02-12 16:43] LABS: POTASSIUM 2.9 mmol/L (3.5-5.1)
--- NOTE | 2020-02-12 18:53 | NUR ---
RWECEIVED REPORT FROM DAVID TORRES. ASSUMED CARE OF PT AROUND 1150. PT A&O X4. ADMISSION ASSESSMENT, VITALS, HISTORY, AND EDUCATION COMPLETED CHARTED. MEDS RECONCILLED. PHOTO OF SACRAL WOUND TAKEN. PT HAVING MULTIPLE INCONTINENCES OF REJI - PT CLEANED AND LINENS CHANGED. CDIFF SAMPLE SENT DOWN. IV PAIN AND TRANSDERMAL PAIN MEDICATIONS GIVEN FOR REPORT OF ABDOMINAL PAIN. PARTIAL RELIEF OBTAINED. PT BEING TURNED Q2 HRS FOR COMFORT. TOLERATING CLEAR LIQUIDS. UA STILL TO BE OBTAINED. PT CURRENTLY RESTING IN BED. CALL LIGHT IS WITHIN REACH. HOURLY ROUNDING PERFORMED. FALL PRECAUTIONS IN PLACE.
[2020-02-13] VITALS: BP 104/55
[2020-02-13 04:00] VITALS: BP 100/59
--- NOTE | 2020-02-13 06:38 | NUR ---
ASSUMED PT CARE AT 1910. NURSING ASSESSMENT COMPLETED AT START OF SHIFT. 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 PRN PAIN MEDICATION ADMINSITERED THIS SHIFT AND EFFECTIVE. SEE EMAR FOR DOCUMENATION. HOURLY ROUNDING COMPLETED. Q2H REPOSITIONING COMPLETED. CALL LIGHT WITHIN REACH.
[2020-02-13 06:47] LABS: ABSOLUTE LYMPHOCYTES 0.7 thou/uL (0.8-5.3); ABSOLUTE MONOCYTES 0.4 thou/uL (0.0-1.2); ABSOLUTE NEUTROPHILS 1.7 thou/uL (1.6-8.1); BASOPHILS 0.5 %; EOSINOPHILS 0.7 %; HEMATOCRIT 29.9 % (37.0-47.0); LYMPHOCYTES 25.7 %; MCH 28.6 pg (26.0-34.0); MCHC 33.3 g/dL (28.0-37.0); MCV 85.8 fL (80.0-100.0); MONOCYTES 14.8 %; MPV 9.1 fl. (7.2-11.1); NUCLEATED RBCS 0 /100WBC; PLATELET COUNT* 216 thou/uL (150-400); POLYS 58.3 %; RBC 3.48 mil/uL (4.20-5.00); RDW-CV 16.6 % (10.5-14.5); WBC 2.9 thou/uL (4.0-11.0)
[2020-02-13 07:03] LABS: ALBUMIN 2.2 g/dL (3.4-5.0); CALCIUM 6.6 mg/dL (8.5-10.1); CREATININE 0.9 mg/dL (0.6-1.3); POTASSIUM 3.2 mmol/L (3.5-5.1); TOTAL BILIRUBIN 0.2 mg/dL (<0.1-1.0); TOTAL PROTEIN 5.7 g/dL (6.4-8.2)
[2020-02-13 08:00] VITALS: BP 100/58
[2020-02-13 12:00] VITALS: BP 102/45
[2020-02-13 16:00] VITALS: BP 101/41
[2020-02-13 21:00] VITALS: BP 100/51
[2020-02-14] VITALS: BP 120/53
[2020-02-14 00:57] LABS: URINE BILIRUBIN NEGATIVE (Negative); URINE BLOOD NEGATIVE (Negative); URINE CLARITY CLEAR; URINE COLOR YELLOW; URINE GLUCOSE-RANDOM NEGATIVE (Negative); URINE KETONES NEGATIVE (Negative); URINE NITRITE-REFLEX NEGATIVE (Negative); URINE PROTEIN NEGATIVE (Negative); URINE SPECIFIC GRAVITY <= 1.005 (1.005-1.030); URINE UROBILINOGEN 0.2 E.U./dl (0.2-1.0)
[2020-02-14 01:05] LABS: URINE LEUKOCYTES-REFLEX 2+ (Negative)
[2020-02-14 01:25] LABS: CASTS None Seen /LPF (None Seen); SQUAMOUS 4-10 Moderate /LPF (0-3)
[2020-02-14 01:26] LABS: MUCUS 0-3 Light strn/LPF (None Seen); URINE RBC None Seen /HPF (0-2)
[2020-02-14 01:27] LABS: CRYSTALS None Seen /LPF (None Seen); WBC CLUMPS Few (None Seen)
[2020-02-14 04:00] VITALS: BP 125/56
--- NOTE | 2020-02-14 06:21 | NUR ---
ASSUMED PT CARE AT 1900. NURSING ASSESSMENT COMPLETED AT START OF SHIFT. SR ON CARIDAC MONITOR. PRN PAIN MEDICATION ADMINISTERED, SEE EMAR FOR DOCUMENTATION. HOURLY ROUNDING COMPLETED. HIGH FALL PRECAUTIONS IN PLACE. CALL LIGHT WITHIN REACH. PT TOLERATING REGULAR DIET, NO COMPLAINTS OF N/V.
[2020-02-14 06:32] LABS: ABSOLUTE LYMPHOCYTES 0.8 thou/uL (0.8-5.3); ABSOLUTE MONOCYTES 0.4 thou/uL (0.0-1.2); ABSOLUTE NEUTROPHILS 1.5 thou/uL (1.6-8.1); BASOPHILS 0.8 %; EOSINOPHILS 1.2 %; HEMATOCRIT 30.7 % (37.0-47.0); HEMOGLOBIN 9.9 gm/dL (12.0-15.0); LYMPHOCYTES 29.8 %; MCHC 32.3 g/dL (28.0-37.0); MCV 86.6 fL (80.0-100.0); MONOCYTES 14.1 %; MPV 9.7 fl. (7.2-11.1); NUCLEATED RBCS 0 /100WBC; PLATELET COUNT* 180 thou/uL (150-400); POLYS 54.1 %; RBC 3.54 mil/uL (4.20-5.00); RDW-CV 17.3 % (10.5-14.5); WBC 2.8 thou/uL (4.0-11.0)
[2020-02-14 06:41] LABS: CREATININE 0.7 mg/dL (0.6-1.3); POTASSIUM 3.9 mmol/L (3.5-5.1); TOTAL BILIRUBIN 0.2 mg/dL (<0.1-1.0); TOTAL PROTEIN 5.3 g/dL (6.4-8.2)
--- NOTE | 2020-02-14 08:28 | CON ---
[address] [address] CONSULTATION Name: GABRIEL SANCHEZ Room: [address] IN .R.#: [id number] Admission: 02/12/20 Attend Phys: Miguel Angel Beach Discharge: Date of : 50 Report #: [id number] THIS REPORT FOR: //name// cc: ANUEL Wray family physician/PCP ANUEL Wray family physician/PCP ~ THIS REPORT FOR: //name// CC: ANUEL physician/PCP Ian Trejo DATE OF SERVICE: 02/13/2020 INFECTIOUS DISEASE CONSULTATION ATTENDING PHYSICIAN: Ian Trejo DO. REASON FOR EVALUATION: Diarrheal illness in the patient with metastatic breast cancer including a recent chemotherapy. HISTORY OF PRESENT ILLNESS: Chart reviewed, patient examined. The patient is a 69-year-old woman with described metastatic breast cancer who is undergoing a cyclical chemotherapy, last one completed roughly a week ago. Over the course of the last 2-3 days prior to admission had developed fairly significant abdominal-related complaints in terms of pain, subsequently developed diarrhea with progressive weakness, had had what she felt was fevers and has only had chills. Denied significant respiratory tract-related signs and symptoms. She notes her appetite had been somewhat diminished, although she states over recent months, her weight had been relatively stable, underwent evaluation in the Emergency Room, was found to have a white count of 3.3 with ANC of 2300. CT abdomen and pelvis showed multiple hepatic metastatic lesions, fluid involving the small bowel suggested mild ileus. No high-grade obstruction, enteritis or abdominopelvic adenopathy. There was no radiographic evidence of colitis at this point. Lactic acid of 0.8. Chest x-ray: Left-sided chest mass. Blood cultures are sterile thus far. Due to the concern about a possible infectious etiology, she was empirically started on therapy with cefepime. At this point, she does feel better, which she attributes to hydration. ALLERGIES: PENICILLINS, STATINS, CODEINE. CURRENT MEDICATIONS: Include pantoprazole, gabapentin, propranolol, p.r.n. analgesics, antiemetics, zolpidem and cefepime. PAST MEDICAL HISTORY: As described metastatic breast cancer to the liver, lung, brain; diabetes mellitus type 2; hypertension. SOCIAL HISTORY: Former smoker. No ethanol. No illicit [place] [address] CONSULTATION Name: GABRIEL SANCHEZ Room: [address]#: [id number] Admission: 02/12/20 Attend Phys: Miguel Angel Beach Discharge: Date of : 50 Report #: [id number] FAMILY HISTORY: Noncontributory. REVIEW OF SYSTEMS: Otherwise, unremarkable 10-point review of systems with the exception of the above. PHYSICAL EXAMINATION: GENERAL: She appears chronically ill, undernourished. She is pleasant, cooperative. She appears ill, although not overtly toxic. She is in [id number] distress. She is lucid. VITAL SIGNS: Temperature 98.2, pulse 70, respirations 18, blood pressure 100/58. SKIN: Warm, dry. HEENT: Normocephalic. Extraocular muscles intact. She has alopecia. NECK: Supple. LUNGS: Diminished breath sounds bilateral, few scattered crackles. HEART: Regular. I do not appreciate a murmur. ABDOMEN: Nondistended, it is generally soft. There is no percussible tenderness. I do not believe there are any peritoneal signs. GENITOURINARY AND RECTAL: Deferred. LABORATORY DATA: As noted above, blood cultures sterile thus far. CBC: White count of 2.9, on repeat, H and H 10.0 and 29.9, platelets of 216, ANC of 1700. Electrolytes: Sodium 142, potassium 3.2, chloride 110, bicarbonate of 23, anion gap of 9, BUN and creatinine 3 and 0.9, glucose of 140. LFTs unremarkable. Albumin of 2.2, total protein of 5.7. ASSESSMENT AND PLAN: Diarrheal illness in the patient, it is immunocompromised metastatic breast cancer. The C. diff is pending and certainly would be concerned, although there are some clinical and radiographic features that do not fit quite perfectly. We will continue resuscitation with hydration. She is taking very little oral at this point, certainly at risk for additional complications, especially if the white count continues to drop. She notes she has never had complications that she is aware of with this chemotherapy regimen. We will add incentive spirometry. Continue empiric therapy with the cefepime, I think it is reasonable. <ELECTRONICALLY SIGNED> By: Lasha Chester MD 02/14/20 0828 [id number] Chester MD /nt
[2020-02-14 14:20] VITALS: BP 116/67
[2020-02-14 16:00] VITALS: BP 137/62
[2020-02-14 20:00] VITALS: BP 127/63
[2020-02-15] VITALS: BP 138/62
[2020-02-15 05:44] VITALS: BP 146/60
[2020-02-15 05:52] LABS: ABSOLUTE LYMPHOCYTES 0.8 thou/uL (0.8-5.3); ABSOLUTE MONOCYTES 0.4 thou/uL (0.0-1.2); ABSOLUTE NEUTROPHILS 1.9 thou/uL (1.6-8.1); BASOPHILS 0.8 %; EOSINOPHILS 0.8 %; HEMATOCRIT 29.9 % (37.0-47.0); HEMOGLOBIN 9.7 gm/dL (12.0-15.0); MCH 28.1 pg (26.0-34.0); MCHC 32.5 g/dL (28.0-37.0); MCV 86.4 fL (80.0-100.0); MONOCYTES 13.6 %; MPV 9.9 fl. (7.2-11.1); NUCLEATED RBCS 0 /100WBC; PLATELET COUNT* 166 thou/uL (150-400); POLYS 60.8 %; RBC 3.46 mil/uL (4.20-5.00); RDW-CV 17.2 % (10.5-14.5); WBC 3.2 thou/uL (4.0-11.0)
[2020-02-15 06:45] LABS: ALBUMIN 1.9 g/dL (3.4-5.0); CALCIUM 7.5 mg/dL (8.5-10.1); CREATININE 0.6 mg/dL (0.6-1.3); POTASSIUM 3.7 mmol/L (3.5-5.1); TOTAL BILIRUBIN 0.2 mg/dL (<0.1-1.0); TOTAL PROTEIN 5.1 g/dL (6.4-8.2)
[2020-02-15 07:30] VITALS: BP 140/74
[2020-02-15 12:00] VITALS: BP 128/42
--- NOTE | 2020-02-15 15:10 | NUR ---
WOUND NURSE: RECEIVED CONSULT FOR APPARENT SACRAL WOUND; HOWEVER, THERE IS NO WOUND. SKIN IS INTACT AND WITHOUT IDENTIFIED COMPLICATING FACTORS. WOUND CARE NURSE CONSULT CANCELLED A RESULT.
--- NOTE | 2020-02-15 15:24 | NUR ---
Pt is A&O. Resides at home with her dtr. Current with [facility] and wants to resume at dc. Pt uses a walker or wc for mobility. Hx of skilled at [facility]. Goal is home at ri. Following for dc needs.
[2020-02-15 17:37] VITALS: BP 123/53
[2020-02-15 20:40] VITALS: BP 140/62
[2020-02-16] VITALS: BP 154/66
[2020-02-16 04:00] VITALS: BP 144/57
--- NOTE | 2020-02-16 05:13 | NUR ---
PT SLEPT ON AND OFF THIS SHIFT. ASSESSMENT DOCUMENTED. MEDS GIVEN PER E-MAR. PORT PATENT. 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 PT BLADDER SCANNED, READING 211ML. PAIN AND NAUSEA MEDS GIVEN PER E-MAR PER PT REQUEST, WITH SOME RELIEF. WILL CONTINUE WITH PLAN OF CARE.
[2020-02-16 07:18] LABS: CALCIUM 7.3 mg/dL (8.5-10.1); CREATININE 0.5 mg/dL (0.6-1.3); MAGNESIUM 1.1 mg/dL (1.8-2.4); POTASSIUM 3.5 mmol/L (3.5-5.1)
[2020-02-16 08:00] VITALS: BP 136/74
--- NOTE | 2020-02-16 08:10 | NUR ---
ASSUMED CARE OF PATIENT THIS MORNING FROM NIGHT NURSE. PT IS DOING WELL WITH HER CO OFPAIN MODERATLY CONTROLLED WITH AROUND THE CLOCK PAIN MEDICATIONS. SHE WAS EDUCATED ON PLAN OF CARE AND DISEASE PROCESS. BED IS IN LOWEST POSITION ADN CALL LIGHT IS IN REACH. BED ALARM IS ON. WILL CONTINUE TO MONITOR.
[2020-02-16 12:04] VITALS: BP 106/48
--- NOTE | 2020-02-16 15:18 | NUR ---
Per , Pt needs better pain control for back pain prior to dc. Plan home with [facility] at dc.
[2020-02-16 16:12] VITALS: BP 111/45
[2020-02-16 20:10] VITALS: BP 96/42
[2020-02-17] VITALS: BP 131/69
[2020-02-17 04:00] VITALS: BP 139/85
--- NOTE | 2020-02-17 07:15 | NUR ---
CHANGE OF SHIFT, BEDSIDE REPORT GIVEN PATIENT SEEN AT BEDSIDE, IN BED ASLEEP ASSUMED PATIENT CARE
[2020-02-17 08:00] VITALS: BP 128/58
[2020-02-17] MEDS ORDERED: CELEBREX 200 M200 M1 PO (10:13)
[2020-02-17] MEDS ORDERED: NEXIUM40 MG PO (10:13)
[2020-02-17] MEDS ORDERED: CYCLOBENZAPRINE10 MG PO (10:13)
[2020-02-17 10:17] VITALS: BP 128/58
--- NOTE | 2020-02-17 11:34 | NUR ---
Pt discharging to home today, faxed HH resumption orders to [facility]
[2020-02-17 12:30] VITALS: BP 125/63
[2020-02-17] MEDS ORDERED: LIDOPATCH1 EACH TOP (15:19)
--- NOTE | 2020-02-17 16:56 | NUR ---
PATIENT DISCHARGED TO HOME WITH H/H PORT REMOVED AND PACKED WITH HEPARIN HEART MONITOR REMOVED PERSOANL BELONGIGNGS REPLACED PAT[facility]
== END 2020-02-17 17:00 | disposition home health service (06) | DRG 871 ==
LOC: M.ERS 06:32 → M.2W 08:57 → M.TBA-ER 08:57 → M.2W 12:11
PROVIDERS: Internal Medicine; Personal Emergency Response Attendant; ADMIT Internal Medicine; ATTEND Internal Medicine
DX: A41.9 Sepsis, unspecified organism (principal); J18.9 Pneumonia, unspecified organism; C78.7 Secondary malignant neoplasm of liver and intrahepatic bile duct; C79.31 Secondary malignant neoplasm of brain; R50.81 Fever presenting with conditions classified elsewhere; K29.70 Gastritis, unspecified, without bleeding; K52.9 Noninfective gastroenteritis and colitis, unspecified; M54.5 Low back pain; E11.9 Type 2 diabetes mellitus without complications; I10 Essential (primary) hypertension; E86.0 Dehydration; C50.912 Malignant neoplasm of unspecified site of left female breast; Z79.899 Other long term (current) drug therapy; Z88.5 Allergy status to narcotic agent; Z88.0 Allergy status to penicillin; Z88.8 Allergy status to other drugs, medicaments and biological substances; Z92.21 Personal history of antineoplastic chemotherapy; Z87.891 Personal history of nicotine dependence; Z90.710 Acquired absence of both cervix and uterus; Z90.49 Acquired absence of other specified parts of digestive tract; J44.9 Chronic obstructive pulmonary disease, unspecified

== ENCOUNTER 2020-02-17 18:07 | Inpatient (IN) | payer OTHER, MEDICAID ==
[~2020-02-17] VITALS: Ht 172.7 cm; Wt 81.6 kg
[~2020-02-17 18:07] MED LIST changes: +CELEBREX 200 M200 M1 PO; +CYCLOBENZAPRINE10 MG PO
[2020-02-17 21:26] LABS: ALBUMIN 1.9 g/dL (3.4-5.0); ALKALINE PHOSPHATASE 56 U/L (46-116); ANION GAP 1 mmol/L (7-16); BUN 11 mg/dL (7-18); CALCIUM 7.5 mg/dL (8.5-10.1); CHLORIDE 103 mmol/L (98-107); CO2 33 mmol/L (21-32); CREATININE 0.7 mg/dL (0.6-1.3); GLUCOSE 149 mg/dL (70-99); POTASSIUM 4.2 mmol/L (3.5-5.1); SGOT 19 U/L (15-37); SGPT 10 U/L (30-65); SODIUM 137 mmol/L (136-145); TOTAL BILIRUBIN 0.2 mg/dL (<0.1-1.0); TOTAL PROTEIN 5.2 g/dL (6.4-8.2)
[2020-02-17 21:28] LABS: APTT 27.8 Seconds (25.0-31.3); INR 1.1; PROTIME 11.4 Seconds (9.20-11.50)
[2020-02-17 21:29] LABS: ABSOLUTE EOSINOPHILS 0.1 thou/uL (0.0-0.7); ABSOLUTE LYMPHOCYTES 0.9 thou/uL (0.8-5.3); ABSOLUTE MONOCYTES 0.7 thou/uL (0.0-1.2); ABSOLUTE NEUTROPHILS 3.3 thou/uL (1.6-8.1); BASOPHILS 0.5 %; EOSINOPHILS 1.4 %; HEMATOCRIT 31.5 % (37.0-47.0); HEMOGLOBIN 10.4 gm/dL (12.0-15.0); LYMPHOCYTES 18.1 %; MCH 28.2 pg (26.0-34.0); MCHC 33.1 g/dL (28.0-37.0); MCV 85.1 fL (80.0-100.0); MONOCYTES 13.6 %; MPV 10.2 fl. (7.2-11.1); PLATELET COUNT* 190 thou/uL (150-400); POLYS 66.4 %; RBC 3.71 mil/uL (4.20-5.00); RDW-CV 17.4 % (10.5-14.5)
[2020-02-17 21:41] LABS: TROPONIN-I LEVEL <0.06 ng/mL (<0.06)
[2020-02-18] VITALS (7 sets, daily range): BP systolic 105–160; BP diastolic 53–76
[2020-02-18 12:55] LABS: URINE BILIRUBIN NEGATIVE (Negative); URINE BLOOD TRACE (Negative); URINE CLARITY CLEAR; URINE COLOR YELLOW; URINE GLUCOSE-RANDOM NEGATIVE (Negative); URINE KETONES NEGATIVE (Negative); URINE LEUKOCYTES NEGATIVE (Negative); URINE NITRITE NEGATIVE (Negative); URINE PROTEIN NEGATIVE (Negative); URINE SPECIFIC GRAVITY 1.015 (1.005-1.030); URINE UROBILINOGEN 0.2 E.U./dl (0.2-1.0)
[2020-02-19] VITALS: BP 122/56
[2020-02-19 07:30] VITALS: BP 110/58
[2020-02-19 11:30] VITALS: BP 122/73
[2020-02-19 12:49] LABS: ABSOLUTE EOSINOPHILS 0.1 thou/uL (0.0-0.7); ABSOLUTE LYMPHOCYTES 1.1 thou/uL (0.8-5.3); ABSOLUTE MONOCYTES 0.6 thou/uL (0.0-1.2); ABSOLUTE NEUTROPHILS 1.9 thou/uL (1.6-8.1); BASOPHILS 0.9 %; EOSINOPHILS 1.7 %; HEMATOCRIT 29.4 % (37.0-47.0); HEMOGLOBIN 9.5 gm/dL (12.0-15.0); LYMPHOCYTES 28.4 %; MCH 28.3 pg (26.0-34.0); MCHC 32.5 g/dL (28.0-37.0); MCV 86.9 fL (80.0-100.0); MONOCYTES 17.1 %; MPV 9.2 fl. (7.2-11.1); NUCLEATED RBCS 0 /100WBC; PLATELET COUNT* 152 thou/uL (150-400); POLYS 51.9 %; RBC 3.38 mil/uL (4.20-5.00); RDW-CV 17.2 % (10.5-14.5); WBC 3.7 thou/uL (4.0-11.0)
[2020-02-19 12:58] LABS: CALCIUM 7.4 mg/dL (8.5-10.1); CREATININE 0.5 mg/dL (0.6-1.3); POTASSIUM 4.1 mmol/L (3.5-5.1)
[2020-02-19 16:00] VITALS: BP 160/73
[2020-02-19 20:00] VITALS: BP 140/66
[2020-02-20] VITALS: BP 132/67
[2020-02-20 08:00] VITALS: BP 150/114
[2020-02-20 16:50] VITALS: BP 144/55
[2020-02-20 20:00] VITALS: BP 151/70
[2020-02-21 03:01] VITALS: BP 137/68
[2020-02-21 08:30] VITALS: BP 132/67
[2020-02-21 12:30] VITALS: BP 146/49
[2020-02-22] VITALS: BP 119/65
[2020-02-22 07:30] VITALS: BP 116/74
[2020-02-22 12:16] VITALS: BP 140/60
[2020-02-22 16:19] VITALS: BP 134/62
[2020-02-22 19:30] VITALS: BP 130/58
[2020-02-23] VITALS: BP 170/67
[2020-02-23 04:00] VITALS: BP 180/76
[2020-02-23 08:00] VITALS: BP 189/104
[2020-02-23 12:21] VITALS: BP 154/62
[2020-02-23 17:00] VITALS: BP 101/65
[2020-02-23 19:40] VITALS: BP 166/66
[2020-02-24] VITALS: BP 130/57
[2020-02-24 08:03] VITALS: BP 151/72
[2020-02-24 12:30] VITALS: BP 120/40
[2020-02-24 13:12] LABS: ABSOLUTE BASOPHILS 0.1 thou/uL (0.0-0.2); ABSOLUTE EOSINOPHILS 0.1 thou/uL (0.0-0.7); ABSOLUTE LYMPHOCYTES 1.1 thou/uL (0.8-5.3); ABSOLUTE MONOCYTES 0.5 thou/uL (0.0-1.2); ABSOLUTE NEUTROPHILS 2.4 thou/uL (1.6-8.1); BASOPHILS 1.4 %; EOSINOPHILS 1.7 %; HEMATOCRIT 28.4 % (37.0-47.0); HEMOGLOBIN 9.3 gm/dL (12.0-15.0); LYMPHOCYTES 27.4 %; MCH 28.2 pg (26.0-34.0); MCHC 32.9 g/dL (28.0-37.0); MCV 85.6 fL (80.0-100.0); MONOCYTES 12.3 %; MPV 9.3 fl. (7.2-11.1); NUCLEATED RBCS 0 /100WBC; PLATELET COUNT* 155 thou/uL (150-400); POLYS 57.2 %; RBC 3.31 mil/uL (4.20-5.00); RDW-CV 16.2 % (10.5-14.5); WBC 4.2 thou/uL (4.0-11.0)
[2020-02-24 16:00] VITALS: BP 170/91
[2020-02-24 19:50] VITALS: BP 151/89
[2020-02-25] VITALS: BP 121/53
[2020-02-25 08:00] VITALS: BP 133/55
[2020-02-25] MEDS ORDERED: NORCO 10-325 T1 EACH PO (12:16)
[2020-02-25 15:03] VITALS: BP 133/55
== END 2020-02-25 16:20 | DRG 597 ==
LOC: M.ERS 18:07 → M.2W 22:05 → M.TBA-ER 22:05 → M.2W 02-18 06:48
PROVIDERS: Internal Medicine; Nurse Practitioner Family; ADMIT Internal Medicine; ATTEND Internal Medicine
DX: C50.919 Malignant neoplasm of unspecified site of unspecified female breast (principal); E43 Unspecified severe protein-calorie malnutrition; N17.9 Acute kidney failure, unspecified; C78.7 Secondary malignant neoplasm of liver and intrahepatic bile duct; C79.31 Secondary malignant neoplasm of brain; E11.9 Type 2 diabetes mellitus without complications; K52.9 Noninfective gastroenteritis and colitis, unspecified; I10 Essential (primary) hypertension; Z90.710 Acquired absence of both cervix and uterus; Z90.49 Acquired absence of other specified parts of digestive tract; Z85.3 Personal history of malignant neoplasm of breast; Z88.6 Allergy status to analgesic agent; Z88.0 Allergy status to penicillin; Z88.8 Allergy status to other drugs, medicaments and biological substances; Z87.891 Personal history of nicotine dependence; Z68.27 Body mass index [BMI] 27.0-27.9, adult